=== PATIENT | female | born 1990 | race African-American/Black ===

== ENCOUNTER 2017-04-23 06:08 | Emergency (ER) | payer OTHER ==
[~2017-04-23] VITALS: Ht 157.5 cm; Wt 68.0 kg
[2017-04-23] MEDS ORDERED: IBUPROFEN 600MG TABLET PO ONE (08:30)
[2017-04-23] MEDS ORDERED: ACETAMINOPHEN 325MG TABLET PO ONE (08:30)
[2017-04-23 08:39] LABS: CLARITY URINE CLEAR (CLEAR); COLOR URINE YELLOW (YELLOW); GLUCOSE URINE NEGATIVE (NEGATIVE); KETONES URINE NEGATIVE (NEGATIVE); LEUKOCYTE ESTERASE URINE 2+ (NEGATIVE); NITRITE URINE NEGATIVE (NEGATIVE); OCCULT BLOOD URINE TRACE (NEGATIVE); PH URINE 5.5 (4.5-8.0); PROTEIN URINE NEGATIVE (NEGATIVE); SPECIFIC GRAVITY URINE 1.023 (1.005-1.030); UROBILINOGEN URINE 0.2 E.U./dL (0.2-1.0)
[2017-04-23 08:41] LABS: BASOPHILS % 0.3 % (0.0-2.0); EOSINOPHILS % 0.9 % (0.0-5.0); HEMATOCRIT. 35.2 % (36.0-48.0); HEMOGLOBIN. 11.2 g/dL (12.0-16.0); LYMPHOCYTES % 26.8 % (20.0-50.0); MEAN CORPUSCULAR HEMOGLOBIN 25.5 pg (28.0-32.0); MEAN CORPUSCULAR VOLUME 80.4 fL (81.0-99.0); MEAN PLATELET VOLUME 7.9 fl (7.4-10.4); MONOCYTES % 6.1 % (2.0-8.0); NEUTROPHILS % 65.9 % (40.0-76.0); PLATELET 219 x1000/uL (130-400); RED BLOOD CELL COUNT 4.38 mill/uL (4.2-5.4); RED CELL DISTRIBUTION WIDTH 15.2 % (11.6-14.6)
[2017-04-23] MEDS ORDERED: LIDOCAINE HCL 1% 20ML VIAL (Pyxis) INJ INFIL ONE (10:15)
[2017-04-23] MEDS ORDERED: MORPHINE SULFATE 10 MG/ML CPJ IM ONE ×2 (10:15)
[2017-04-23 12:06] VITALS: BP 110/62
== END 2017-04-23 12:08 | disposition home or self-care (01) ==
LOC: ER 06:08
DX: L02.214 Cutaneous abscess of groin (principal); N39.0 Urinary tract infection, site not specified
CPT/HCPCS: 10060; 36415; 81001; 81025; 85025; 96372; 99284; A4217; J2270; J3490; Z7610

== ENCOUNTER 2018-01-16 14:56 | Emergency (ER) | payer MEDICAID, OTHER ==
[~2018-01-16] VITALS: Ht 157.5 cm; Wt 66.0 kg
[2018-01-16 15:00] VITALS: BP 132/99
[2018-01-16 16:14] LABS: CLARITY URINE TURBID (CLEAR); COLOR URINE YELLOW (YELLOW); KETONES URINE NEGATIVE (NEGATIVE); LEUKOCYTE ESTERASE URINE 3+ (NEGATIVE); NITRITE URINE NEGATIVE (NEGATIVE); OCCULT BLOOD URINE 3+ (NEGATIVE); PH URINE 6.5 (4.5-8.0); PROTEIN URINE 2+ (NEGATIVE); SPECIFIC GRAVITY URINE 1.017 (1.005-1.030)
== END 2018-01-16 17:26 | disposition home or self-care (01) ==
LOC: ER 15:22
DX: N39.0 Urinary tract infection, site not specified (principal); R03.0 Elevated blood-pressure reading, without diagnosis of hypertension
CPT/HCPCS: 81003; 81025; 87077; 87086; 87186; 99284

== ENCOUNTER 2018-03-18 15:59 | Emergency (ER) | payer MEDICAID ==
[~2018-03-18] VITALS: Ht 160 cm; Wt 65.3 kg
[2018-03-18] MEDS ORDERED: ONDANSETRON 4MG ODT PO ONE (19:00)
[2018-03-18] MEDS ORDERED: MORPHINE SULFATE 10 MG/ML CPJ IM ONE (19:00)
[2018-03-18] MEDS ORDERED: CEFTRIAXONE SODIUM 1 G/VIAL IM ONE (19:00)
[2018-03-18] MEDS ORDERED: LIDOCAINE HCL/PF 1% 10 MG/ML 5ML VIAL IJ ONE (19:15)
[2018-03-18 19:23] VITALS: BP 126/84
== END 2018-03-18 21:40 | disposition home or self-care (01) ==
LOC: ER 15:59
DX: L73.2 Hidradenitis suppurativa (principal); L03.116 Cellulitis of left lower limb; R03.0 Elevated blood-pressure reading, without diagnosis of hypertension
CPT/HCPCS: 81025; 96372; 99284; J0696; J2270; J3490; Q0162